=== PATIENT | female | born 1980 | race Caucasian/White ===

== ENCOUNTER 2022-01-08 09:11 | Emergency (ER) | payer OTHER ==
[2022-01-08 10:12] VITALS: O2SAT 100
--- NOTE | 2022-01-08 11:17 | ERPHSYRPT ---
- History of Present Illness Source: patient Exam Limitations: no limitations Patient Subjective Stated Complaint: Fall Triage Nursing Assessment: Patient brought back to ED per w/c and transferred self to bed. Patient A+O X 3. Patient's skin pink, warm and dry. Patient co mplains of a fall 6 feet off of a ladder last night hitting the back of her head on the ground. Patient complains of headache, N/V. Patient complains of left shoulder and hand pain. Left shoulder noted to have bruising and right hand bruising and swollen. Physician History: 41 yo wf fell off 8-10 foot ladder last night. She has a DUTTA, and there was +LOC. Pt also has mild C-spine pain which is worse w movement. She also complains of L shoulder pain and L hand-wrist pain. Pt denies chest-abdominal pain/T and L- spine pain/Hip pain/LE pain. is denied. Pain is moderate. Pt refuses pain meds at this time. Occurred: yesterday Reason for Fall: lost balance Injuries/Pain Location: head, neck, upper extremity (L [id number]) Loss of Consciousness: brief (seconds) Quality: aching Severity of Pain-Max: severe Severity of Pain-Current: moderate Modifying Factors: Improves With: movement Associated Symptoms (Fall): extremity injury, headache, neck pain, No abdominal pain, No back pain, No confusion, No chest pain, No dizziness, No lightheadedness, No muscle spasms, No nausea, No ringing in ears, No seizures, No shortness of breath, No slurred speech, No trouble walking, No vomiting, No vision changes Allergies/Adverse Reactions: Sulfa (Sulfonamide Antibiotics) Allergy (Verified 01/08/22 09:53) Hx Influenza Vaccination/Date Given: No Hx Pneumococcal Vaccination/Date Given: No Immunizations Up to Date: Yes Travel Risk - International Travel Have you traveled outside of the country in past 3 weeks: No - Coronavirus Screening Are you exhibiting any of the following symptoms?: No Close contact with a COVID-19 positive Pt in past 14-21 Days: No - Vaccine Status Have you recieved a Covid-19 vaccination: No - Review of Systems Constitutional: No Symptoms Eyes: No Symptoms Ears, Nose, & Throat: No Symptoms Respiratory: No Symptoms Cardiac: No Symptoms Abdominal/Gastrointestinal: No Symptoms Genitourinary Symptoms: No Symptoms Skin: No Symptoms Neurological: No Symptoms Psychological: No Symptoms Endocrine: No Symptoms Hematologic/Lymphatic: No Symptoms Immunological/Allergic: No Symptoms - Past Medical History Pertinent Past Medical History: Yes Neurological History: No Pertinent History ENT History: No Pertinent History Cardiac History: No Pertinent History Respiratory History: No Pertinent History Endocrine Medical History: No Pertinent History Musculoskeletal History: No Pertinent History GI Medical History: GERD History: No Pertinent History Psycho-Social History: Anxiety, Depression Female Reproductive Disorders: No Pertinent History Other Medical History: Anemia - Past Surgical History Past Surgical History: Yes Neuro Surgical History: No Pertinent History Cardiac: No Pertinent History Respiratory: No Pertinent History Gastrointestinal: Cholecystectomy, Other Genitourinary: No Pertinent History Musculoskeletal: No Pertinent History Female Surgical History: Hysterectomy Other Surgical History: Gastric bypass - Social History Smoking Status: Never smoker Exposure to second hand smoke: Yes Drug Use: none Patient Lives Alone: No - Female History Hx Last Menstrual Period: partial hysterctomy Hx Now: No - Nursing Vital Signs Nursing Vital Signs: Initial Vital Signs Temperature 97.1 F 01/08/22 09:54 Pulse Rate 69 01/08/22 09:54 Respiratory Rate 18 01/08/22 09:54 Blood Pressure 142/82 01/08/22 09:54 O2 Sat by Pulse Oximetry 100 01/08/22 09:54 Pain Scale Pain Intensity 5 Hypertensive - Jesus Coma Score Best Eye Response (Jesus): (4) open spontaneously Best Verbal Response ([place]): (5) oriented Best Motor Response (Jesus): (6) obeys commands Jesus Total: 15 - Physical Exam General Appearance: no apparent distress Head Injury: tenderness (TTP L occipital area) Eye Exam: PERRL/EOMI, eyes nml inspection ENT Exam: airway nml, No evidence of ENT injury, No clear fluid (ears), No clear fluid (nose) Neck Exam: supple, trachea midline, tenderness (C-spine mildly TTP) Respiratory/Chest Exam: normal breath sounds, No chest tenderness, No respiratory distress, No crepitus Cardiovascular Exam: normal heart sounds, regular rate/rhythm, normal peripheral pulses, No murmur, No edema Gastrointestinal Exam: soft, normal bowel sounds, No tenderness Back Exam: normal inspection, normal range of motion, No CVA tenderness, No vertebral tenderness (No T or L-spine TTP) Extremity Exam: pelvis stable, other (L proximal hand TTP 1st metacarpal/TTP L radial wrist/Mild edema/Good radial pulse, distal sensation, and capillary return) Neurologic Exam: alert, oriented x 3, cooperative, follow up rep II-XII nml as tested, normal mood/affect Skin Exam: normal color, warm, dry SpO2 Interpretation: normal SpO2: 100 O2 Delivery: Room Air - Course Nursing assessment & vital signs reviewed: Yes - Radiology Exams Hand X-ray Interpretation: Discussed w/ radiologist (L hand neg per Rad) Shoulder X-ray Interpretation: Discussed w/ radiologist (L shoulder neg per Rad) - CT Exams Head CT Interpretation: Discussed w/radiologist (CT head neg ) Cervical Spine CT Interpretation: Discussed w/radiologist (CT cervical spine neg) Ordered Tests: Active Orders 24 hr Category Date Time Status Haroon Bandage Application -[facility] STAT Care 01/08/22 12:47 Completed CERVICAL SPINE WO CONTRAST [CT] Stat Exams 01/08/22 11:12 Completed HAND (MINIMUM 3 VIEWS) Stat Exams 01/08/22 11:25 Completed HEAD WITHOUT CONTRAST [CT] Stat Exams 01/08/22 10:48 Completed SHOULDER Stat Exams 01/08/22 11:25 Completed WRIST (MIN 3 VIEWS) Stat Exams 01/08/22 11:25 Completed - Progress Progress Note: 01/08/22 12:47 Pt refused all pain meds Haroon wrap L hand per nursing/NVI Counseled pt/family regarding: diagnosis, need for follow-up, rad results - Departure Departure Disposition: Home Clinical Impression: Minor closed head injury, Cervical strain, Contusion of shoulder, left, Contusion of hand, left Condition: Stable Critical Care Time: No Referrals: MICHELLE BUTT MD [Primary Care Provider] - Follow up/PCP as directed Instructions: Contusion (DC), Minor Head Injury (DC), Cervical Muscle Strain (DC) Additional Instructions: Motrin/Tylenol for pain Ice to contused areas for 12-24 hours Haroon wrap left hand for 2-3 days Follow up with your family MD for continued pain Return to ER for any new signs/symptoms
--- NOTE | 2022-01-08 12:06 | XRAY ---
Exam: CT of the cervical spine without IV contrast from 01/08/2022. CTDI: 53.00 mGy Comparison: None. Indication: 41-year-old female fell 10 feet yesterday; complains of left-sided neck pain. Technique: Non-IV contrast axial images are obtained through the cervical spine. Reconstructed coronal and sagittal images were created and reviewed. Findings: There is some straightening of the cervical spine on the sagittal images which could be due to patient positioning or posterior paravertebral muscular spasm. The preodontoid space is normal. No acute cervical spine fracture, AP subluxation, or prevertebral soft tissue swelling is seen. No locked or perched facets are seen on the sagittal images. The cervical interspace heights are well preserved. No abnormality of the uncovertebral joints is seen. No cervical ribs are identified. The visualized lung apices appear clear. No central canal stenosis is seen. It appears the patient's head is slightly turned toward the left on the upper axial images. This gives the appearance of a slight rotary subluxation at C1-C2. Correlate clinically. There is incomplete closure of the posterior ring of C1 which represents a developmental/congenital variation. The cervical neural foramen are patent bilaterally throughout the cervical spine. The thyroid gland appears grossly unremarkable. No abnormal cervical lymphadenopathy is seen. Impression: 1. No acute cervical spine fracture or AP subluxation is seen. See above. 2. There is some straightening of the cervical spine on the sagittal images which may be due to patient positioning or posterior paravertebral muscular spasm.
--- NOTE | 2022-01-08 12:19 | XRAY ---
Exam: CT of the head without IV contrast from 01/08/2022. CTDI: 53.92 mGy Comparison: None. Indication: 41-year-old female fell 10 feet yesterday; complains of left-sided neck pain and left-sided head pain; dizziness/headache, nausea, vomiting; posterior "knot" on left. Technique: Non-IV contrast axial images were obtained through the brain. Reconstructed coronal and sagittal images were created and reviewed. Findings: The ventricles appear of normal size and configuration. No focal mass effect or midline shift is seen. Tiny bilateral basal ganglia calcifications are seen. There is no acute intracranial bleed or abnormal extra-axial fluid collection. Garcia matter-white matter differentiation is preserved. Structures of the posterior fossa appear unremarkable. No low attenuation infarct or focal edema is seen. The cortical sulci and basilar cisterns appear unremarkable. The calvarium of the skull appears intact. There is a minimal soft tissue density near the skin line posteriorly on the right on axial images #43 and #44. Correlate clinically regarding a small bruise at this site. In addition, there are some tiny bright densities in the skin line on the forehead, most prominent anterior to the frontal sinuses on axial image #28. Correlate clinically as to whether these are tiny foreign bodies at this level. The visualized paranasal sinuses appear essentially clear except for some minimal posterior mucosal thickening within the right side of the sphenoid sinus. There is also some minimal mucosal thickening at the inferior medial margin of the left maxillary sinus. No air-fluid levels are seen. The mastoid air cells are clear without effusion. The middle ear cavities appear grossly unremarkable. The orbits appear grossly unremarkable. Impression: 1. No acute intracranial bleed or other acute intracranial process is seen. 2. There is some minimal scattered mucosal thickening within the paranasal sinuses. No air-fluid levels are seen. 3. The calvarium of the skull appears intact. There is a tiny lesion posteriorly to the right of midline on axial images #43 and #44 within the upper posterior parietal region. This may represent a small skin lesion or perhaps a small bruise at this site. Correlate clinically. 4. There are some tiny bright densities near the skin line of the forehead. Correlate clinically. For example, see axial image #28.
--- NOTE | 2022-01-08 12:21 | XRAY ---
Exam: 3 view left shoulder series from 01/08/2022. Comparison: None. Indication: 41-year-old female fell about 10 feet yesterday onto left side; pain and bruising. Findings: AP internal rotation, AP external rotation, and Y views of the left shoulder were obtained. I see no acute fracture or dislocation. The glenohumeral joint and acromioclavicular joint appear unremarkable. No abnormal soft tissue calcifications are adjacent to the left humeral head. The left clavicle appears intact. The left lung appears clear. No other focal bone lesion is seen. Impression: 1. No acute left shoulder fracture or dislocation is seen. No other bone or joint abnormality is seen.
--- NOTE | 2022-01-08 12:23 | XRAY ---
Exam: 3 views of the left wrist from 01/08/2022. Comparison: None. Indication: 41-year-old female fell yesterday about 10 feet onto left side; pain and bruising. Findings: AP, oblique, and lateral radiographs of the left wrist were obtained. I see no acute fracture or dislocation. The radiocarpal joint appears unremarkable. The carpal scaphoid bone appears intact. The remainder of the carpal bones appear intact. Impression: 1. No acute left wrist fracture or dislocation is seen.
--- NOTE | 2022-01-08 12:25 | XRAY ---
Exam: 3 views of the left hand from 01/08/2022. Comparison: None. Indication: 41-year-old female fell about 10 feet yesterday onto left side; pain and bruising. Findings: AP, oblique, and lateral radiographs of the left hand were obtained. I see no acute fracture or dislocation. The joint spaces appear unremarkable. No other focal bone lesion is seen. No radiopaque soft tissue foreign body is evident. Impression: 1. No acute fracture or dislocation of the left hand.
[2022-01-08 12:59] VITALS: BP 136/74
[2022-01-08 13:02] VITALS: PULSE 66
== END 2022-01-08 13:02 | disposition home or self-care (01) ==
LOC: ED 09:11
DX: S09.90XA Unspecified injury of head, initial encounter (principal); S16.1XXA Strain of muscle, fascia and tendon at neck level, initial encounter; S40.012A Contusion of left shoulder, initial encounter; S60.222A Contusion of left hand, initial encounter; W11.XXXA Fall on and from ladder, initial encounter; R51.9 Headache, unspecified; Z28.310 Unvaccinated for COVID-19
CPT/HCPCS: 70450; 72125; 73030; 73110; 73130; 99283